=== PATIENT | female | born 1980 | race Two or more races ===

== ENCOUNTER → 2024-11-01 | Outpatient (CLI) | payer BC, SELFPAY ==
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
== END | disposition home or self-care (01) ==
LOC: CDIM 07:04
PROVIDERS: PCP Family Medicine; Referring Provider Registered Nurse; Visit Provider Registered Nurse
DX: S19.9XXA Unspecified injury of neck, initial encounter (principal); S39.92XA Unspecified injury of lower back, initial encounter; V89.2XXA Person injured in unspecified motor-vehicle accident, traffic, initial encounter
CPT/HCPCS: 72050; 72110

== ENCOUNTER → 2024-11-28 | Outpatient (CLI) | payer BC, SELFPAY ==
[2024-11-27 14:27] LABS: HCG Qualitative,Urine Negative
--- NOTE | 2024-11-28 16:00 | XR_ITS ---
Examination: CT abdomen and pelvis without contrast. Coronal 3-D reconstructions. Sagittal 2-D reconstructions. Date and time of exam:November 28, 2024 1629 hours INDICATIONS: History flank pain abdominal pain months, history right kidney stones CTDI: vol (mGy): 12.6 DLP: (mGycm): 749 Technique: Axial images of the abdomen have been obtained, 3 mm slice thickness Intravenous contrast material has not been administered. Low dose protocols were performed. One or more of the following dose reduction techniques were used; automated exposure control, adjustment of the mA and/or KV according to patient size, use of iterative reconstruction technique. Findings: Fatty infiltration throughout the liver no focal liver or splenic lesion Contracted gallbladder No pancreatic or adrenal mass Atrophic right kidney with severe scarring, 10 mm 12 mm right renal calculi No hydronephrosis or ureteral minimal right hydronephrosis Multiple right ureteral calculi in aggregate extending over a distance of 23 mm in the mid right ureter No pericecal inflammatory change No bowel obstruction Partially retroverted uterus with irregular fundus Prominent left ovary 4 cm No bladder mass Intact osseous structures IMPRESSION: Atrophic right kidney with severe parenchymal scarring 10 mm 12 mm right renal calculi Minimal right hydronephrosis, multiple mid right ureteral calculi extending over 23 mm in the right ureter Irregular fundus of uterus with enlarged left ovary, recommend pelvic sonography follow-up
== END | disposition home or self-care (01) ==
PROVIDERS: PCP Physician Assistant; Referring Provider Physician Assistant; Visit Provider Physician Assistant
DX: N13.2 Hydronephrosis with renal and ureteral calculous obstruction (principal); N26.1 Atrophy of kidney (terminal); N28.89 Other specified disorders of kidney and ureter; N83.8 Other noninflammatory disorders of ovary, fallopian tube and broad ligament; Z32.00 Encounter for pregnancy test, result unknown
CPT/HCPCS: 74176; 81025

== ENCOUNTER → 2024-12-26 | Outpatient (CLI) | payer BC, SELFPAY ==
--- NOTE | 2024-12-26 14:30 | XR_ITS ---
Examination: Pelvic ultrasound, transabdominal, complete Technique: Transabdominal ultrasound of the pelvis performed using grayscale imaging Date and time of exam: December 26, 2024 1442 hours INDICATIONS: Irregular fundus of uterus enlarged left ovary on CT pelvis November 28, 2024 FINDINGS: Enlarged uterus 10.3 x 5.5 cm but no discrete uterine mass Endometrial stripe 0.9 cm Right ovary 3.4 cm arterial flow Left ovary 3.0 cm arterial flow IMPRESSION: Mildly diffusely enlarged uterus but no discrete uterine mass Normal ovaries
== END | disposition home or self-care (01) ==
LOC: CDIM 14:27
PROVIDERS: PCP Physician Assistant; Referring Provider Physician Assistant; Visit Provider Physician Assistant
DX: N85.2 Hypertrophy of uterus (principal)
CPT/HCPCS: 76856

== ENCOUNTER → 2025-01-17 | Outpatient (BNVA) | payer BC, SELFPAY | END | disposition home or self-care (01) | PROVIDERS: PCP Physician Assistant; Referring Provider Physician Assistant; Visit Provider Urology | DX: N20.2 Calculus of kidney with calculus of ureter (principal) | CPT/HCPCS: 81003; 99212; G0463 ==

== ENCOUNTER → 2025-02-14 | Outpatient (CLI) | payer BC, SELFPAY ==
[2025-02-14 11:41] LABS: Basophils # (Auto) 0.0 Thou/mm3 (0.0-0.2); Basophils % (Auto) 1 % (0-2.5); Eosinophils # (Auto) 0.1 Thou/mm3 (0.0-0.5); Eosinophils % (Auto) 1 % (0-10); Hematocrit 44.1 % (36.0-46.0); Hemoglobin 14.2 g/dL (12.0-16.0); Immature Granulocytes Auto 0.03 Thou/mm3 (0.00-0.00); Lymphocytes # (Auto) 1.9 Thou/mm3 (1.0-4.8); Lymphocytes % (Auto) 24 % (10-50); Mean Corpuscular HGB Conc 32.2 g/dl (31.0-37.0); Mean Corpuscular Hemoglobin 28.6 pg (25.0-35.0); Mean Corpuscular Volume 89 fL (80-100); Monocytes # (Auto) 0.6 Thou/mm3 (0.0-0.8); Monocytes % (Auto) 7 % (0-12); Neutrophils # (Auto) 5.3 Thou/mm3 (1.8-7.7); Neutrophils % (Auto) 67 % (37-80); Nucleated Red Blood Cell # 0.00 Thou/mm3 (0.00-0.00); Nucleated Red Blood Cell % 0 /100 WBC (0); Platelet Count 223 Thou/mm3 (140-440); RDW Standard Deviation 44.1 fL (36.4-46.3); Red Blood Count 4.97 Miln/mm3 (4.00-5.20); White Blood Count 7.8 Thou/mm3 (3.6-11.0)
[2025-02-14 11:44] LABS: Glucose Estimated Average 100 mg/dL (80-131); Hemoglobin A1C 5.1 % Hgb (4.8-6.0)
[2025-02-14 11:51] LABS: Alanine Aminotransferase 39 U/L (10-49); Albumin, Serum 4.6 gm/dL (3.5-5.0); Anion Gap 10 (7-16); Aspartate Amino Transferase 22 U/L (0-34); BUN/Creatinine Ratio 10 Ratio (12-20); Bilirubin,Total 0.4 mg/dL (0.3-1.2); Blood Urea Nitrogen 11 mg/dL (9-23); Calcium 9.7 mg/dL (8.3-10.6); Calcium (Corrected) 9.7 mg/dL (8.5-10.1); Carbon Dioxide 25.4 mMol/L (20.0-31.0); Chloride 103 mMol/L (98-107); Creatinine (Component) 1.1 mg/dL (0.6-1.3); Glucose 101 mg/dL (74-106); Osmolality,Calculated 275 (275-295); Potassium 4.0 mMol/L (3.4-5.1); Sodium 138 mMol/L (136-145); Total Protein 7.2 gm/dL (5.7-8.2); eGFR > 60 See Note
[2025-02-14 11:52] LABS: Albumin/Globulin Ratio 1.8 (1.2-2.2); Alkaline Phosphatase 160 U/L (46-116); Beta HCG,Quantitative < 1 mIU/mL (<5.0); Free T4 (Free Thyroxine) 1.27 ng/dL (0.89-1.76); Globulin 2.6 gm/dL (2.3-3.5); Thyroid Stimulating Hormone 2.17 uIU/mL (0.55-4.78)
[2025-02-14 17:36] LABS: Follicle Stimulating Hormone 5.88 mIU/mL (See Note)
[2025-02-25 09:13] LABS: DHEA Sulfate* 123 mcg/dL (19-231); Estrogen, Total, Serum* 401 pg/mL; Luteinizing Hormone* 22.0 mIU/mL; Progesterone,LC/MS* 0.3 ng/mL; Prolactin* 8.4 ng/mL; Testosterone, Free,Dialysis 6.5 pg/mL (0.1-6.4); Testosterone, Total, Dialysis 44 ng/dL (2-45)
== END | disposition home or self-care (01) ==
LOC: COPL 10:48
PROVIDERS: PCP Family Medicine; Referring Provider Specialist; Visit Provider Specialist
DX: N91.5 Oligomenorrhea, unspecified (principal)
CPT/HCPCS: 36415; 80053; 82627; 82672; 83001; 83002; 83036; 84144; 84146; 84402; 84403; 84439; 84443; 84702; 85025

== ENCOUNTER → 2025-03-05 | Outpatient (BNVA) | payer BC, SELFPAY | END | disposition home or self-care (01) | PROVIDERS: PCP Physician Assistant; Referring Provider Physician Assistant; Visit Provider Urology | DX: N20.0 Calculus of kidney (principal); E66.9 Obesity, unspecified; Z71.3 Dietary counseling and surveillance; Z68.38 Body mass index [BMI] 38.0-38.9, adult | CPT/HCPCS: 81003; 99212; G0463 ==

== ENCOUNTER 2025-03-13 06:15 | Day surgery (SDC) | payer BC, SELFPAY ==
[2025-03-12 12:01] VITALS: BMI 40.4
[2025-03-12 13:23] LABS: HCG Qualitative,Urine Negative
[2025-03-13] VITALS (7 sets, daily range): BP systolic 132–148; BP diastolic 10–101; PULSE 68–76; RESP 14–20; TEMP 36.6–37.1; O2SAT 96–100; BMI 40.3
[2025-03-13] MEDS: RINGERS LACTATED 1000 ML 1,000 ML 20 ML IV (06:58)
[2025-03-13 07:32] LABS: Anion Gap 6 (7-16); BUN/Creatinine Ratio 8 Ratio (12-20); Blood Urea Nitrogen 9 mg/dL (9-23); Calcium 8.8 mg/dL (8.3-10.6); Carbon Dioxide 26.6 mMol/L (20.0-31.0); Chloride 107 mMol/L (98-107); Creatinine (Component) 1.1 mg/dL (0.6-1.3); Estimated Creatinine Clearance 81.4 mL/min (>60); Glucose 97 mg/dL (74-106); Osmolality,Calculated 278 (275-295); Potassium 3.9 mMol/L (3.4-5.1); Sodium 140 mMol/L (136-145); eGFR > 60 See Note
--- NOTE | 2025-03-13 08:30 | XR_ITS ---
EXAMINATION: Right retrograde pyelogram with without KUB Fluoroscopy 4 spot fluoroscopic abdomen films March 13, 2025, 0954 hours INDICATIONS: Ureteral stent insertion under fluoroscopy today TECHNIQUE AND FINDINGS: 4 spot fluoroscopic films of the abdomen Opacification of mildly dilated right renal calyces Right ureteral stent satisfactory position Fluoroscopy 34.9 seconds radiation dose 14.83 mGy IMPRESSION: Right retrograde pyelogram as above
--- NOTE | 2025-03-13 10:23 | SUR.PHASEI ---
1023 patient arrived to recovery sleeping comfortably in [facility], able to arouse with verbal prompting then drifts back to sleep, on oxygen 8L via oxy mask, breathing unlabored, vital signs stable, denies pain and nausea, report received from Pina ALVARES/Dr. Xiong and Huan ORNELAS
--- NOTE | 2025-03-13 10:40 | ESOP_ITS ---
Date of Procedure 03/13/25 Pre Op Diagnosis Right kidney stone right hydronephrosis, right small kidney Post Op Diagnosis Same Procedure Cystoscopic examination, right retrograde pyelogram right ureteroscopy placement of right ureteral stent in a retrograde fashion under fluoroscopic examination Findings 2 stones in the right kidney 10 mm 9 mm with hydronephrosis with a small atrophic kidney right side 28% function on MAG3 renal scan Procedure Description Indication for procedure this is a 44-year-old female this patient has a history of stone disease. She had small kidney right side MAG3 renal scan was done she had 28% function on the right side 78% on the left side she has right hydronephrosis she was recommended above procedure procedure and complications were discussed with the patient in great detail informed consent is obtained Patient was brought to the operating room in a satisfactory condition after appropriate premedication was put on the operating table in a spine position. She was appropriately identified by surgeon and operating room staff site scope and indications of the procedure were reconfirmed with the patient. General anesthesia was given uneventfully patient was positioned in a dorsolithotomy position parts were prepped and draped in the usual sterile fashion 2% lidocaine was instilled into the urethra. Semirigid cystoscope was used to do the cystourethroscopy examination of urethra was unremarkable examination of bladder in all the quadrant was carried out there was no stone or diverticula i dentified. At this time patient received perioperative antibiotics. 20 mg of Lasix was administered IV for prevention of pyelocalyceal reflux infectious complications. Next I located the right ureteral orifice open-ended Pollick catheter was inserted into the right ureteral orifice retrograde pyelogram was performed. There was hydronephrosis right side. I passed safety wire under fluoroscopic examination through the open-ended Pollick catheter. At this time as soon I passed the open ended Pollick catheter in the renal pelvis it is decompressed with the sediments draining from left kidney ,urine for culture sensitivity was sent. Through the open-ended Pollick catheter I placed a safety wire into the upper pole calyx. Semirigid ureteroscope was used to do the ureteroscopy. The ureter was accommodating. Next I remove the ureteroscope and placed a 26 cm long double-J stent proximal and curled in the renal pelvis distal in the bladder. The reason for placing the ureteral stent is that hydronephrosis was decompressed and there were sediments coming out. Patient is scheduled for second stage which will be cystoscopy retrograde ureteroscopy flexible digital ureteroscopy and laser stone fragmentation stone evaporation stone basketing. Patient is scheduled for the above procedure on 12/19/2024 postoperative instructions are given to patient verbally as well as in writing to be followed in urology office as well Anesthesia GETA Pathology / specimen Other (Urine for culture sensitivity) Estimated Blood Loss 0.2 Condition Stable Disposition PACU Surgeon Quentin Pinto MD Surgical Staff Operation Date: 03/13/25 08:30 Case Staff Anesthesiologist: Ric Xiong
--- NOTE | 2025-03-13 11:17 | SUR.PHASEII ---
1117 patient meets discharge criteria from recovery, awake and alert, breathing unlabored, vital signs stable, denies pain and nausea, voided in the restroom x2, able to dress herself into her clothing, discharge instructions given to patient and patients father, father signed discharge instructions. Patient given all her belongings prior to discharge, transported via wheelchair and left in a private vehicle.
== END 2025-03-13 11:17 | disposition home or self-care (01) ==
PROVIDERS: Anesthesiology; PCP Family Medicine; Referring Provider Urology; Visit Provider Urology
PROC: 0TJB8ZZ Inspection of Bladder, Via Natural or Artificial Opening Endoscopic (ICD-10-PCS; CPT 52000; 2025-03-13 08:30)
DX: N13.2 Hydronephrosis with renal and ureteral calculous obstruction (principal); N27.0 Small kidney, unilateral
CPT/HCPCS: 52351; 52332; 36415; 74420; 80048; 81025; 87077; 87086; 87186; A4217; A4649; C1769; C1894; C2617; J1100; J1580; J1938; J2250; J2405; J2704; J3010; J3373; J3490; J7120

== ENCOUNTER 2025-03-21 05:45 | Day surgery (SDC) | payer BC, SELFPAY ==
[2025-03-20 11:09] VITALS: BMI 38.0
[2025-03-20 11:47] LABS: HCG Qualitative,Urine Negative
[2025-03-21] VITALS (8 sets, daily range): BP systolic 122–136; BP diastolic 72–84; PULSE 54–78; RESP 14–22; TEMP 36.2–37.2; O2SAT 94–98; BMI 37.6
[2025-03-21] MEDS: RINGERS LACTATED 1000 ML 1,000 ML 20 ML IV (06:23)
[2025-03-21] MEDS: VANCOMYCIN/NS 1 GM IVPB 200 ML IV (06:23)
--- NOTE | 2025-03-21 07:25 | XR_ITS ---
EXAMINATION: Retrograde pyelogram, right, with without contrast 9 spot fluoroscopic films of the abdomen Fluoroscopy Date and time: March 21, 2025, 9:39 a.m. INDICATIONS: Laser lithotripsy ureteral stent placement today, history flank pain months, right renal calculi right hydronephrosis multiple ureteral calculi on CT stone study November 28, 2024 TECHNIQUE AND FINDINGS: 9 spot fluoroscopic views of the abdomen with contrast in dilated renal collecting system Right ureteral stent in satisfactory position Fluoroscopy 35 seconds radiation dose 14.133 mGy IMPRESSION: Retrograde pyelogram as above
--- NOTE | 2025-03-21 10:24 | SUR.PHASEI ---
pt received from OR in recovery bay 3. pt asleep but responds to voice, breahting unlabored on oxymask 6l. v/s stable. report received from Clayton PELAEZ and Huan ORNELAS.
--- NOTE | 2025-03-21 11:00 | ESOP_ITS ---
RE: KERRY SINCLAIR : 1980 DATE OF OPERATION: 03/21/2025 PREPROCEDURE DIAGNOSES: Large accumulation of upper ureteral stones measuring 2.5 cm right ureter, two 2 cm calyceal stones in mid and lower calyx right kidney, indwelling ureteral stent right. POSTPROCEDURE DIAGNOSIS: Status post ureteroscopic and retrograde intrarenal surgery stage I, right. PROCEDURE PERFORMED: Fluoroscopic imaging of upper urinary tract, cystoscopy, placement of safety wire, removal of ureteral stent, ureteroscopic surgery with laser stone fragmentation and stone basketing from ureter, retrograde intrarenal surgery with vaporization of mid calyceal stone, retrograde pyelogram under fluoroscopic control right, placement of indwelling ureteral stent right. SURGEON: Shiva Bryan MD [employer] SURGEON: Quentin Pinto MD. ANESTHESIA: General. INDICATIONS: This patient is a 44-year-old lady who comes for treatment of complex right renal stone disease. The patient has a history of relapsing and recurrent urinary tract infections and recently an indwelling ureteral stent was placed to drain the right kidney and bypass a large accumulation of stone material in the right ureter. At this point, the patient comes for treatment of her right ureteral and right renal stones. The patient's stone burden is approximately 2.5 cm in the ureter and 2 stones with a size of 2 cm in the kidney. The patient understands that this will be a staged procedure given the amount of stone material and also the infected nature of her stones. Appropriate consent was obtained. DESCRIPTION OF FINDINGS: Fluoroscopically, faint stone shadows are identified in the upper ureter alongside the indwelling ureteral stent, which is in correct position. Also, faint stone shadows are identified overlying the mid and lower aspect of the right kidney. Endoscopic treatment of the ureter is performed. The stones in the ureter are fragmented and vaporized and with multiple passages with the basket stone material is removed from the ureter. The calyceal stone in the kidney is vaporized. The lower calyceal stone in the kidney will be addressed in the planned second treatment session. A new stent is placed. DESCRIPTION OF PROCEDURE: Prior to initiation of anesthesia, the patient is appropriately identified by the surgeon and operating room personnel. Indication for surgery and scope of surgery are reconfirmed with the patient. The patient received preoperative antibiotics intravenously based on previous culture and sensitivity testing. After induction of general anesthesia, the patient was positioned on the endoscopy table in lithotomy position. The outer genitalia was prepped and draped in a sterile fashion. Cystoscopy was performed using a 21-Singaporean instrument. Cystoscopy showed normal bladder mucosa and the inferior extent is seen protruding from the right ureteral orifice. A 5-Singaporean angiographic catheter was introduced into the right ureteral orifice over a guidewire under fluoroscopic control. The guidewire was advanced up into the kidney to serve as a safety wire. At this point, the patient received 20 mg of Lasix intravenously to induce diuresis and reduce the risk of pyelovenous reflux and infectious complications during the surgical procedure. Next, the indwelling ureteral stent was removed and checked for completeness. Following this, a flexible digital ureteroscope was advanced into the ureter. The instrument was advanced into the ureter to the level of the impacted stones. The stones were fragmented as necessary to allow for basket removal. More than 20 passes for stone baskets were performed to clear out stone material from the ureter. Following this, the instrument is advanced up into the kidney with injection of contrast. A mildly distended renal collecting system is confirmed. The mid calyceal stone is readily accessible and is fragmented and vaporized to completeness. At this point, the treatment is terminated as the treatment time for these infected stones already reached the 2-hour tracy, so as to decrease the risk of infectious complications. Treatment is terminated with placement of an indwelling stent. Prior to this, contrast was again injected confirming the integrity of the upper urinary tract. An indwelling stent was placed over the safety wire under fluoroscopic and endoscopic control, positioned correctly in the kidney and bladder. The bladder was emptied. The patient is awakened and returned to recovery where she arrived in satisfactory condition. ESTIMATED BLOOD LOSS: Minimal. COMPLICATIONS: None. SPECIMENS: No material for chemical analysis and for culture and sensitivity testing. DISPOSITION: The patient will be discharged home from the outpatient surgical area. She will return within 4-6 weeks for the planned second-stage procedure. DT: :29:38 TT: 10:58:00 Ref: [id number] - TID: [id number] MTDD
--- NOTE | 2025-03-21 11:04 | SUR.PHASEII ---
pt able to tolerate oral fluids without difficulty swallowing or nausea/vomiting.
--- NOTE | 2025-03-21 11:38 | SUR.PHASEII ---
1138 Patient meets discharge criteria from recovery, awake and alert, breathing unlabored, vital signs stable, denies pain and nausea, voided in the restroom prior to discharge, no stones noted, patient able to dress herself into her clothing, discharge instructions given to patient and patients father, father signed discharge instructions, patient given all her belongings prior to discharge, transported via wheelchair and left in a private vehicle.
== END 2025-03-21 11:38 | disposition home or self-care (01) ==
PROVIDERS: Anesthesiology; Specialist; PCP Family Medicine; Referring Provider Urology; Visit Provider Urology
PROC: 0TJB8ZZ Inspection of Bladder, Via Natural or Artificial Opening Endoscopic (ICD-10-PCS; CPT 52000; principal; 2025-03-21 07:30)
DX: N13.2 Hydronephrosis with renal and ureteral calculous obstruction (principal); N27.0 Small kidney, unilateral
CPT/HCPCS: 52356; 74420; 81025; J0131; J1100; J1580; J1885; J1938; J2405; J2704; J3010; J3373; J3490; J7120

== ENCOUNTER 2025-04-05 05:55 | Day surgery (SDC) | payer BC, SELFPAY ==
[2025-04-04 11:21] VITALS: BMI 39.0
[2025-04-04 12:11] LABS: Anion Gap 11 (7-16); BUN/Creatinine Ratio 11 Ratio (12-20); Blood Urea Nitrogen 13 mg/dL (9-23); Calcium 9.2 mg/dL (8.3-10.6); Carbon Dioxide 24.0 mMol/L (20.0-31.0); Chloride 105 mMol/L (98-107); Creatinine (Component) 1.2 mg/dL (0.6-1.3); Estimated Creatinine Clearance 75.8 mL/min (>60); Glucose 97 mg/dL (74-106); Osmolality,Calculated 279 (275-295); Potassium 4.2 mMol/L (3.4-5.1); Sodium 140 mMol/L (136-145); eGFR 58 See Note
[2025-04-04 12:17] LABS: HCG,Qualitative Serum Negative
[2025-04-05] VITALS (11 sets, daily range): BP systolic 100–147; BP diastolic 64–91; PULSE 61–81; RESP 15–20; TEMP 36.2–37.1; O2SAT 95–100; BMI 38.5
[2025-04-05] MEDS: VANCOMYCIN/NS 1 GM IVPB 200 ML IV (06:59)
[2025-04-05] MEDS: RINGERS LACTATED 1000 ML 1,000 ML 20 ML IV (06:59)
--- NOTE | 2025-04-05 07:20 | SUR.PREOP ---
Patient expressed gratitude for prayer before their procedure.
--- NOTE | 2025-04-05 08:39 | XR_ITS ---
EXAMINATION : Retrograde pyelogram with without KUB 12 spot fluoroscopic abdomen films Fluoroscopy Date and time: April 05, 2025 1029 hours INDICATIONS: History right renal calculi right hydronephrosis multiple ureteral calculi, ureteral stone manipulation and stent placement TECHNIQUE AND FINDINGS: 12. Spot fluoroscopic films of the abdomen with minimal opacification of the right renal pelvis and ureter Right ureteral stent noted in satisfactory position Fluoroscopy 1.24 minutes radiation dose 34.06 mGy IMPRESSION: Retrograde pyelogram as above
--- NOTE | 2025-04-05 12:00 | SUR.PHASEI ---
pt arrived to PACU via gurney with oral airway present, breathing unlabored, VS stable, report from Vivian ORNELAS and Dr Xiong
--- NOTE | 2025-04-05 12:10 | SUR.PHASEI ---
report to Gertrudis Anderson RN
--- NOTE | 2025-04-05 12:58 | SUR.PHASEII ---
Dr. Pinto at bedside talking with patient
[2025-04-05] MEDS: ONDANSETRON INJ 2 MG/ML INJ 2 ML 4 MG IVP (13:29)
--- NOTE | 2025-04-05 13:39 | ESOP_ITS ---
RE: KERRY SINCLAIR : 1980 DATE OF OPERATION: 04/05/2025 PREPROCEDURE DIAGNOSIS: 2+ centimeter stone in lower pole of right kidney, status post ureteroscopic surgery for 2.5 mm right proximal ureteral stone, indwelling ureteral stent, right. POSTPROCEDURE DIAGNOSIS: Status post retrograde intrarenal surgery stage I, right. PROCEDURE PERFORMED: Fluoroscopic imaging of the upper urinary tract; cystoscopy; retrograde pyelogram under fluoroscopic control, right; retrograde intrarenal surgery, right, with laser stone fragmentation and vaporization; placement of indwelling ureteral stent, right. SURGEON: Shiva Bryan MD C[employer] DECORATING CONSULTANT SURGEON: Dr. Quentin Pinto. ANESTHESIA: General. INDICATIONS: This patient is a 44-year-old lady who comes for continuation of treatment of complex right upper tract stone disease. On 03/21/2025, the patient underwent ureteroscopic surgery for an impacted stone in the proximal ureter measuring 2.5 cm. These stones precluded complete treatment and an indwelling renal stent was placed. The patient now comes for treatment of the renal stone component, which is about 2+ cm located in the lower pole extending to the renal pelvis. This procedure was discussed with the patient in detail. DESCRIPTION OF FINDINGS: Fluoroscopically, a faint stone shadow was identified overlying the lower pole of the right kidney. The stent is in correct position. Endoscopically, bladder mucosa is unremarkable. An indwelling stent is seen protruding from the right ureteral orifice. Retrograde pyelogram shows a mildly dilated renal collecting system. Endoscopic evaluation of the ureter shows no evidence of stone material. The previous stone bed has healed well. There is no evidence for stricture disease. Endoscopic evaluation of the kidney reveals the 2+ cm stone in the lower pole. The stone by appearance and by its response to laser energy is an infection-type stone. A ureteral access sheath was utilized and then stone vaporization was performed with vaporization of approximately 80% of the stone in this treatment session. A new stent is placed. DESCRIPTION OF PROCEDURE: Prior to initiation of anesthesia, the patient was appropriately identified by the surgeon and the operating room personnel. The indication for surgery, site, and scope of surgery are reconfirmed with the patient. The patient received perioperative antibiotics intravenously based on the previous culture and sensitivity. After induction of general anesthesia, the patient was positioned on the endoscopy table in the lithotomy position. The outer genitalia was prepped and draped in a sterile fashion. Cystoscopy was performed using a 21-Kazakh instrument. This showed the aforementioned findings. A 5-Kazakh angiographic catheter was introduced into the right ureteral orifice over a guidewire under fluoroscopic control. The guidewire was advanced up into the kidney to serve as a safety wire. At this point, the patient received 22 mg of Lasix intravenously to induce diuresis and reduce the risk of pyelovenous reflux and infectious complications during the surgical procedure in the kidney. Next, the indwelling ureteral stent was removed and checked for completeness. Following this, a flexible digital ureteroscope was advanced into the ureter. The entire course of the ureter was inspected on endoscopic withdrawal without evidence for stone material or other abnormalities. Injection of contrast showed the aforementioned findings. Next, a ureteral access sheath was placed. Then retrograde intrarenal surgery was performed with laser stone fragmentation and vaporization. The major portion of the stone can be readily vaporized. Stone further down towards the lower calyx is technically difficult to treat, but eventually the majority of this stone can be completely fragmented and vaporized with again the majority of the stone being vaporized. This was accomplished in a three-hour procedure. Contrast was again injected confirming the integrity of the upper ureter. A new indwelling stent was placed over the safety wire and under fluoroscopic and endoscopic control, positioned correctly in the kidney and bladder. The patient was awakened and returned to recovery where she arrived in satisfactory condition. ESTIMATED BLOOD LOSS: Basically zero. COMPLICATIONS: None. SPECIMENS: Urine for culture and sensitivity testing. DISPOSITION: The patient was discharged home from the outpatient surgical area. She will continue on p.o. antibiotics for 2 weeks' time given a previous stone culture of Proteus mirabilis. An additional treatment session for a clear-out of any residual stone material in the kidney will be planned in the near future. DT: 13:01:09 TT: 13:38:00 Ref: [id number] - TID: [id number] MTDD
--- NOTE | 2025-04-05 13:45 | SUR.PHASEII ---
1329 Patient endorsing nausea, Zofran 4mg via IVP administer per anesthesia order, will monitor patient 1345 Medication effective, patient eating ice chips; tolerating well
--- NOTE | 2025-04-05 13:53 | SUR.PHASEII ---
1353 Patient meets discharge criteria from recovery, awake and alert, breathing unlabored, vital signs stable, denies pain and nausea, eating ice chips; tolerating well, able to dress herself into her clothing, discharge instructions given to patient and her father, father signed discharge instructions. Patient given all belongings prior to discharge, transporter via wheelchair and left in a private vehicle
== END 2025-04-05 13:53 | disposition home or self-care (01) ==
PROVIDERS: Anesthesiology; Specialist; PCP Family Medicine; Referring Provider Urology; Visit Provider Urology
PROC: 0TJB8ZZ Inspection of Bladder, Via Natural or Artificial Opening Endoscopic (ICD-10-PCS; CPT 52000; principal; 2025-04-05 08:00)
DX: N20.2 Calculus of kidney with calculus of ureter (principal)
CPT/HCPCS: 52356; 36415; 74420; 80048; 84703; A4217; A4314; A4649; C1769; C1894; C2617; J0131; J1100; J1580; J1885; J1938; J2250; J2371; J2405; J2704; J3010; J3373; J3490; J7120; A4646; A9270

== ENCOUNTER → 2025-04-30 | Outpatient (BNVA) | payer BC, SELFPAY | END | disposition home or self-care (01) | PROVIDERS: PCP Family Medicine; Referring Provider Family Medicine; Visit Provider Urology | DX: N20.0 Calculus of kidney (principal); N26.1 Atrophy of kidney (terminal); E66.9 Obesity, unspecified; Z68.37 Body mass index [BMI] 37.0-37.9, adult | CPT/HCPCS: 81003; 99212; G0463 ==

== ENCOUNTER 2025-05-23 09:15 | Day surgery (SDC) | payer BC, SELFPAY ==
[2025-05-22 12:11] VITALS: BMI 37.2
[2025-05-22 13:53] LABS: HCG Qualitative,Urine Negative
[2025-05-23] VITALS (8 sets, daily range): BP systolic 123–154; BP diastolic 77–92; PULSE 66–76; RESP 15–20; TEMP 36.4–36.6; O2SAT 95–100; BMI 45.6
[2025-05-23] MEDS: RINGERS LACTATED 1000 ML 1,000 ML 20 ML IV (10:14)
[2025-05-23] MEDS: VANCOMYCIN/NS 1 GM IVPB 200 ML IV (10:25)
--- NOTE | 2025-05-23 11:00 | XR_ITS ---
EXAMINATION: Retrograde pyelogram with without KUB, right Fluoroscopy 8 spot fluoroscopic abdomen films Date and time: May 23, 2025, 1542 hours, comparison April 05, 2025 INDICATIONS: History right renal calculi right hydronephrosis multiple ureteral calculi, post stent placement April 05, 2025, replacement ureteral stent today TECHNIQUE AND FINDINGS: 8. Spot fluoroscopic films of the abdomen Contrast in mildly dilated renal calyces Right ureteral stent satisfactory position IMPRESSION: Retrograde pyelogram as above Fluoroscopy 16.4 seconds, 6 spot fluoroscopic films, radiation dose 5.5431 mGy
--- NOTE | 2025-05-23 14:42 | SUR.PHASEI ---
1442: Pt. wakes to name then drifts back to sleep, vitals stable, breathing unlabored, no complaint of pain or nausea, no dressing in place, no active bleed noted, report received from MD Aceves and Huan ORNELAS.
--- NOTE | 2025-05-23 15:42 | SUR.PHASEII ---
1542: Pt. AAOx4, vitals stable, breathing unlabored, no complaint of pain or nausea, no dressing in place, pt. able to void hematuria, no visible clots noted, pt. tolerated sips of water well, pt. ambulated to wheelchair with steady gait and no assist, no complications. Gave discharge instructions to the pt. and her ride, both verbalized understanding and had no further questions. Pt. left with all personal belongings.
--- NOTE | 2025-05-24 15:39 | ESOP_ITS ---
RE: KERRY SINCLAIR : 1980 DATE OF OPERATION: 05/23/2025 PREPROCEDURE DIAGNOSES: Residual stone travel, lower pole, right kidney, history of infection stone. POSTPROCEDURE DIAGNOSIS: Status post retrograde intrarenal surgery with laser stone fragmentation and stone basketing. PROCEDURE PERFORMED: Fluoroscopic imaging of upper urinary tract, cystoscopy, retrograde pyelogram under fluoroscopic control, retrograde intrarenal surgery with laser stone fragmentation and stone basketing, placement of indwelling ureteral stent, retrograde fashion, right. SURGEON: Shiva Bryan MD. MANAGER SPECIAL EVENTS SURGEON: Quentin Pinto MD. ANESTHESIA: General. INDICATION: This patient is a 44-year-old lady who comes for completion of treatment of complex right infection renal stone. We have discussed with the patient the indication to reevaluate the ureter and renal collecting system for any residual stone material with active stone removal and possible laser treatment. Appropriate consent is obtained. DESCRIPTION OF FINDINGS: Fluoroscopically, there is no evidence for residual stone material. The indwelling stent is in correct position. There is a question of small stone travel alongside the proximal end of the stent. Endoscopically, the bladder mucosa is unremarkable. After placement of a safety wire, the ureteral stent is removed. Flexible digital ureteroscopy shows small stone travel in the proximal ureter which is readily removed with suction and irrigation. In the kidney, the previous seen infectious changes are completely resolved. In the lower pole, there is a small stone residual which can be treated with laser fragmentation and then with stone basketing as well as with suction and irrigation. All stone material larger than 1-2 mm can be actively removed. A new stent is placed. PROCEDURE: Prior to initiation of anesthesia, patient is appropriately identified by the surgeon and operating room personnel. The indication for surgery, site, and scope of surgery are reconfirmed with the patient. Patient received perioperative antibiotics intravenously. After induction of general anesthesia, patient is positioned on the endoscopy table in lithotomy position. The outer genitalia was prepped and draped in a sterile fashion. Cystoscopy is performed using a 21-German instrument. This shows the aforementioned findings. A 5-German Angiocath catheter is introduced into the right ureteral orifice over a guidewire. Under fluoroscopic control, the guidewire is advanced up into the kidney to serve as a safety wire. The indwelling stent is removed and checked for completeness. At this point, the patient received 20 mg of Lasix intravenously to induce diuresis and reduce the risk of pyelovenous reflux and infectious complications. Next, the flexible digital ureteroscope is advanced into the ureter alongside the safety wire. The course of the ureter up to the proximal ureter is traversed under endoscopic control without evidence for any abnormality. Small stone material in the proximal most ureter is removed with suction and irrigation. Then, the stone material in the lower pole is addressed with laser fragmentation as needed and the resultant pieces are removed with stone basketing as well as with suction and irrigation. In this fashion, all stone material larger than 1-2 mm can be actively removed. Contrast is again injected, confirming the integrity of the upper urinary tract, and an indwelling stent is placed over the safety wire and under fluoroscopic and endoscopic control positioned correctly in kidney and bladder. The bladder is emptied. Patient is awakened and returned to recovery, where she arrived in satisfactory condition. ESTIMATED BLOOD LOSS: Minimal. COMPLICATIONS: None. SPECIMENS: Stone for chemical analysis. DISPOSITION: The patient will be discharged home from the outpatient surgical area. She will return in [address] Pinto's office for a renal ultrasound and possible removal of the indwelling ureteral stent in the office setting under local anesthesia. DT: :56 TT: 21:36:00 Ref: [id number] - TID: [id number]
== END 2025-05-23 15:42 | disposition home or self-care (01) ==
PROVIDERS: Anesthesiology; PCP Family Medicine; Referring Provider Urology; Visit Provider Specialist
PROC: 0TJB8ZZ Inspection of Bladder, Via Natural or Artificial Opening Endoscopic (ICD-10-PCS; CPT 52000; principal; 2025-05-23 11:15)
DX: N20.2 Calculus of kidney with calculus of ureter (principal)
CPT/HCPCS: 52356; 74420; 81025; A4217; A4314; A4649; C1769; C1889; C1894; J0131; J2250; J2704; J3010; J3373; J3490; J7120